=== PATIENT | male | born 1960 | race Caucasian/White ===

== ENCOUNTER 2023-10-18 12:19 | Emergency (ER) | payer OTHER ==
[~2023-10-18] VITALS: Ht 167.6 cm; Wt 77.1 kg
[2023-10-18] MEDS ORDERED: HYDROMORPHONE 1 MG/1 ML DISP.SYRIN ONE (12:55)
[2023-10-18] MEDS ORDERED: dexaMETHasone SOD PHOSPHATE 10 MG/ML VIAL IV ONE (13:00)
[2023-10-18] MEDS ORDERED: HYDROMORPHONE 1 MG/1 ML DISP.SYRIN IV ONE (13:00)
[2023-10-18] MEDS ORDERED: HYDROMORPHONE 1 MG/1 ML DISP.SYRIN IM ONE (13:00)
[2023-10-18 13:20] LABS: BASOPHILS % (AUTO) 0.2 % (0.0-2.0); EOSINOPHILS # (AUTO) 0.1 K/uL (0.0-0.7); EOSINOPHILS % (AUTO) 1.1 % (0.0-6.0); HEMATOCRIT 48 % (39-51); HEMOGLOBIN 15.7 g/dL (13.5-17.5); LYMPHOCYTES # (AUTO) 1.3 K/uL (0.8-4.8); LYMPHOCYTES % (AUTO) 23.4 % (20.0-44.0); MEAN CORPUSCULAR HEMOGLOBIN 29 PG (26.0-33.0); MEAN CORPUSCULAR HGB CONC 33 g/dl (31.0-36.0); MEAN CORPUSCULAR VOLUME 88 fL (80-96); MONOCYTES # (AUTO) 0.7 K/uL (0.1-1.30); MONOCYTES % (AUTO) 12.4 % (2.0-12.0); NEUTROPHILS # (AUTO) 3.4 K/uL (1.8-8.9); NEUTROPHILS % (AUTO) 62.9 % (43.0-81.0); PLATELET COUNT (AUTO) 195 K/uL (150-450); RED BLOOD CELL COUNT(AUTO) 5.43 MIL/uL (4.5-6.0); RED CELL DISTRIBUTION WIDTH 13.8 % (11.5-15.0); WHITE BLOOD COUNT (AUTO) 5.4 K/uL (4.3-11.0)
[2023-10-18 13:35] LABS: CREATININE 0.9 mg/dL (0.6-1.3); POTASSIUM 3.7 mmol/L (3.5-5.1)
[2023-10-18 13:42] LABS: CALCIUM, SERUM 9.4 mg/dL (8.5-10.1)
[2023-10-18] MEDS ORDERED: KETOROLAC TROMETHAMINE 15 MG/ML VIAL IV ONE (14:00)
[2023-10-18] MEDS ORDERED: KETOROLAC TROMETHAMINE 15 MG/ML VIAL ONE (14:25)
[2023-10-18] MEDS ORDERED: HYDR-4303 PO (14:26)
[2023-10-18] MEDS ORDERED: CYCL10TA9 PO (14:26)
[2023-10-18] MEDS ORDERED: IBUP-1955 PO (14:26)
[2023-10-18 14:37] VITALS: BP 142/60; TEMP 98.1; O2SAT 99
== END 2023-10-18 14:41 | disposition home or self-care (01) ==
LOC: ER 12:19
DX: G89.29 Other chronic pain (principal); M54.50 Low back pain, unspecified; I10 Essential (primary) hypertension; F32.A Depression, unspecified
CPT/HCPCS: 99285; 96374; 96375; 85025; 80048; 36415; J1170; J1885; J1100